=== PATIENT | male | born 1970 | race African-American/Black ===

== ENCOUNTER 2017-09-17 11:14 | Emergency (ER) | payer MEDICARE, MEDICAID ==
[~2017-09-17] VITALS: Ht 177.8 cm; Wt 128.1 kg
[~2017-09-17 11:14] MED LIST: AMLO10TA4 PO; ASPI-1159 PO; ATEN50TA PO; CHLO25TA27 PO; CYCL5TAB PO
[2017-09-17 11:17] VITALS: BP 160/109
== END 2017-09-17 15:06 | disposition home or self-care (01) ==
LOC: ER 14:53
DX: S00.86XA Insect bite (nonvenomous) of other part of head, initial encounter (principal); W57.XXXA Bitten or stung by nonvenomous insect and other nonvenomous arthropods, initial encounter; Y93.89 Activity, other specified; Y92.89 Other specified places as the place of occurrence of the external cause; R03.0 Elevated blood-pressure reading, without diagnosis of hypertension; R21 Rash and other nonspecific skin eruption; I10 Essential (primary) hypertension; E11.9 Type 2 diabetes mellitus without complications; F17.210 Nicotine dependence, cigarettes, uncomplicated; F12.90 Cannabis use, unspecified, uncomplicated
CPT/HCPCS: 99283

== ENCOUNTER 2020-06-09 11:04 | Emergency (ER) | payer MEDICARE, MEDICAID ==
[~2020-06-09] VITALS: Ht 177.8 cm; Wt 75.0 kg
[~2020-06-09 11:04] MED LIST changes: -ASPI-1159 PO; +ASPI-1497 PO
[2020-06-09 12:45] VITALS: BP 177/113
== END 2020-06-09 12:46 | disposition home or self-care (01) ==
LOC: ER 11:04
DX: I10 Essential (primary) hypertension (principal); F12.10 Cannabis abuse, uncomplicated; E11.9 Type 2 diabetes mellitus without complications; Z88.0 Allergy status to penicillin; Z79.82 Long term (current) use of aspirin; Z98.890 Other specified postprocedural states
CPT/HCPCS: 99281

== ENCOUNTER 2020-06-23 10:21 | Emergency (ER) | payer MEDICARE, MEDICAID ==
[~2020-06-23] VITALS: Ht 177.8 cm; Wt 127.0 kg
[2020-06-23 10:26] VITALS: BP 144/93
== END 2020-06-23 11:14 | disposition home or self-care (01) ==
LOC: ER 10:21
DX: I10 Essential (primary) hypertension (principal); E11.9 Type 2 diabetes mellitus without complications; F12.10 Cannabis abuse, uncomplicated; Z79.82 Long term (current) use of aspirin; Z88.0 Allergy status to penicillin
CPT/HCPCS: 99281

== ENCOUNTER 2021-10-27 17:55 | Inpatient (IN) | payer MEDICAID, OTHER ==
[~2021-10-27] VITALS: Ht 175.3 cm; Wt 131.5 kg
[2021-10-27] MEDS ORDERED: CARV6.2548 PO (22:38)
[2021-10-27] MEDS ORDERED: METF-414 PO (22:39)
[2021-10-27] MEDS ORDERED: LISI40TA13 PO (22:39)
[2021-10-27] MEDS ORDERED: METO-411 PO (22:40)
[2021-10-27] MEDS ORDERED: ATOR20TA65 PO (22:41)
[2021-10-27] MEDS ORDERED: HYDR25TA PO (22:41)
[2021-10-27] MEDS ORDERED: FURO40TA5 PO (22:41)
[2021-10-27 23:04] LABS: BASOPHILS % 0.5 % (0.0-2.0); EOSINOPHILS % 5.7 % (0.0-5.0); HEMATOCRIT. 38.7 % (42.0-52.0); LYMPHOCYTES % 25.8 % (20.0-50.0); MEAN CORPUSCULAR HEMOGLOBIN 30.8 pg (28.0-32.0); MEAN CORPUSCULAR VOLUME 91.5 fL (80.0-94.0); MEAN PLATELET VOLUME 7.9 fl (7.4-10.4); MONOCYTES % 10.9 % (2.0-8.0); NEUTROPHILS % 57.1 % (40.0-76.0); PLATELET 251 x1000/uL (130-400); RED BLOOD CELL COUNT 4.24 mill/uL (4.7-6.1); RED CELL DISTRIBUTION WIDTH 13.4 % (11.6-14.6)
[2021-10-27 23:13] LABS: CHLORIDE 103 mEq/L (98-107)
[2021-10-27 23:14] LABS: PROTHROMBIN TIME 10.8 sec (9.6-11.0)
[2021-10-28] MEDS ORDERED: SODIUM CHLORIDE 0.9% 1,000 ML IV ONE (01:45)
[2021-10-28] MEDS ORDERED: POTASSIUM CHLORIDE 20MEQ TABLET SR PO NR ×2 (06:00)
[2021-10-28] MEDS ORDERED: CHOL400D7 PO (12:54)
[2021-10-28 12:58] VITALS: BP 110/68
[2021-10-28 13:00] VITALS: BP 110/68
[2021-10-28] MEDS ORDERED: ONDANSETRON HCL 4MG/2ML INJ IV PRN (13:30)
[2021-10-28] MEDS ORDERED: DEXTROSE 50% WATER 50ML SYRINGE IV PRN (13:30)
[2021-10-28] MEDS ORDERED: POTASSIUM CHLORIDE 20MEQ/PACKET PO NR (14:00)
[2021-10-28 16:42] LABS: CREATINE KINASE 123 IU/L (39-308); CREATINE KINASE MB FRACTION < 1.0 ng/mL (0.5-3.6)
[2021-10-28 16:44] LABS: BG BASE EXCESS 3.8 mmol/L (-2.0-2.0); BG CARBOXYHEMOGLOBIN 0.5 % (0.5-1.5); BG DEOXYHEMOGLOBIN 5.7 % (0.0-5.0); BG HCO3 ACT 28.2 mmol/L (22.0-26.0); BG METHEMOGLOBIN 0.3 % (0.0-1.5); BG OXYGEN SATURATION 94.3 % (92.0-98.5); BG OXYHEMOGLOBIN 93.5 % (94.0-97.0); BG PCO2 41.8 mmHg (35.0-45.0); BG PH 7.447 (7.350-7.450); BG PO2 72.3 mmHg (75.0-100.0); BG TOTAL HEMOGLOBIN 13.1 g/dL (12.0-18.0)
[2021-10-28] MEDS: BLOOD SUGAR DIAGNOSTIC STRIP TEST SCH ×2 (17:10→20:59)
[2021-10-28 17:30] VITALS: BP 109/65
[2021-10-28] MEDS: INSULIN LISPRO 100 UNITS/ML SUBCUT SCH ×2 (17:40→20:59)
[2021-10-28] MEDS: SODIUM CHL 0.9% + KCL 20MEQ/L 1,000 ML IV SCH (18:25)
[2021-10-28] MEDS: ENOXAPARIN 30MG/0.3ML SYR SUBCUT SCH ×2 (18:26→20:56)
[2021-10-28 20:00] VITALS: BP 111/64
[2021-10-28] MEDS: ATORVASTATIN CALCIUM 20MG TABLET PO SCH (20:54)
[2021-10-28] MEDS ORDERED: CARVEDILOL 6.25 MG TABLET PO SCH (21:00)
[2021-10-28 22:19] LABS: CLARITY URINE CLEAR (CLEAR); COLOR URINE YELLOW (YELLOW); KETONES URINE NEGATIVE (NEGATIVE); LEUKOCYTE ESTERASE URINE NEGATIVE (NEGATIVE); NITRITE URINE NEGATIVE (NEGATIVE); OCCULT BLOOD URINE NEGATIVE (NEGATIVE); PROTEIN URINE NEGATIVE (NEGATIVE); SPECIFIC GRAVITY URINE 1.012 (1.005-1.030); UROBILINOGEN URINE 0.2 E.U./dL (0.2-1.0)
[2021-10-29] VITALS: BP 106/74
[2021-10-29] MEDS: SODIUM CHL 0.9% + KCL 20MEQ/L 1,000 ML IV SCH ×4 (00:13→22:17)
[2021-10-29 02:31] LABS: CREATINE KINASE 109 IU/L (39-308); CREATINE KINASE MB FRACTION < 1.0 ng/mL (0.5-3.6)
[2021-10-29 04:00] VITALS: BP 101/63
[2021-10-29] MEDS: INSULIN LISPRO 100 UNITS/ML SUBCUT SCH ×4 (06:40→21:00)
[2021-10-29] MEDS: BLOOD SUGAR DIAGNOSTIC STRIP TEST SCH ×4 (06:40→20:58)
[2021-10-29 07:59] LABS: CHLORIDE 109 mEq/L (98-107)
[2021-10-29] MEDS: ENOXAPARIN 30MG/0.3ML SYR SUBCUT SCH ×2 (07:59→20:57)
[2021-10-29 08:00] VITALS: BP 100/60
[2021-10-29 08:06] LABS: BASOPHILS % 0.7 % (0.0-2.0); EOSINOPHILS % 7.2 % (0.0-5.0); HEMOGLOBIN. 10.9 g/dL (14.0-18.0); LYMPHOCYTES % 28.2 % (20.0-50.0); MEAN CORPUSCULAR HEMOGLOBIN 31.9 pg (28.0-32.0); MEAN CORPUSCULAR VOLUME 90.9 fL (80.0-94.0); MEAN PLATELET VOLUME 8.6 fl (7.4-10.4); MONOCYTES % 11.5 % (2.0-8.0); NEUTROPHILS % 52.4 % (40.0-76.0); PLATELET 204 x1000/uL (130-400); RED BLOOD CELL COUNT 3.41 mill/uL (4.7-6.1); RED CELL DISTRIBUTION WIDTH 13.3 % (11.6-14.6)
[2021-10-29 12:00] VITALS: BP 106/62
[2021-10-29] MEDS ORDERED: REGADENOSON 0.4 MG/5 ML IV NR (12:45)
[2021-10-29 16:00] VITALS: BP 108/70
[2021-10-29 17:02] LABS: *AMPHETAMINES SCREEN URINE NEGATIVE (NEGATIVE); *BARBITURATES SCREEN URINE NEGATIVE (NEGATIVE); *BENZODIAZEPINES SCREEN URINE NEGATIVE (NEGATIVE); *COCAINE SCREEN URINE NEGATIVE (NEGATIVE); CANNABINOID URINE SCREEN NEGATIVE (NEGATIVE); METHADONE URINE SCREEN NEGATIVE (NEGATIVE); OPIATES URINE SCREEN NEGATIVE (NEGATIVE); PHENCYCLIDINE URINE SCREEN NEGATIVE (NEGATIVE)
[2021-10-29 20:00] VITALS: BP 112/65
[2021-10-29] MEDS: ATORVASTATIN CALCIUM 20MG TABLET PO SCH (20:53)
[2021-10-30] VITALS: BP 116/50
[2021-10-30 04:00] VITALS: BP 113/82
[2021-10-30] MEDS: SODIUM CHL 0.9% + KCL 20MEQ/L 1,000 ML IV SCH ×3 (05:32→23:15)
[2021-10-30] MEDS: BLOOD SUGAR DIAGNOSTIC STRIP TEST SCH ×4 (06:59→20:36)
[2021-10-30] MEDS: INSULIN LISPRO 100 UNITS/ML SUBCUT SCH ×4 (07:00→21:00)
[2021-10-30 07:01] LABS: BASOPHILS % 0.6 % (0.0-2.0); EOSINOPHILS % 7.7 % (0.0-5.0); HEMATOCRIT. 30.3 % (42.0-52.0); HEMOGLOBIN. 10.5 g/dL (14.0-18.0); LYMPHOCYTES % 28.4 % (20.0-50.0); MEAN CORPUSCULAR HEMOGLOBIN 31.7 pg (28.0-32.0); MEAN CORPUSCULAR VOLUME 91.5 fL (80.0-94.0); MEAN PLATELET VOLUME 8.7 fl (7.4-10.4); MONOCYTES % 12.5 % (2.0-8.0); NEUTROPHILS % 50.8 % (40.0-76.0); PLATELET 203 x1000/uL (130-400); RED BLOOD CELL COUNT 3.31 mill/uL (4.7-6.1); RED CELL DISTRIBUTION WIDTH 13.2 % (11.6-14.6)
[2021-10-30 07:31] LABS: CHLORIDE 115 mEq/L (98-107)
[2021-10-30] MEDS: ENOXAPARIN 30MG/0.3ML SYR SUBCUT SCH ×2 (10:11→21:07)
[2021-10-30 10:15] VITALS: BP 125/81
[2021-10-30] MEDS ORDERED: REGADENOSON 0.4 MG/5 ML IV ONE (11:12)
[2021-10-30] MEDS: ACETAMINOPHEN 325MG TABLET PO PRN (15:51)
[2021-10-30 20:00] VITALS: BP 109/79
[2021-10-30] MEDS: ATORVASTATIN CALCIUM 20MG TABLET PO SCH (21:07)
[2021-10-31] VITALS: BP 102/60
[2021-10-31 04:00] VITALS: BP 106/68
[2021-10-31] MEDS: BLOOD SUGAR DIAGNOSTIC STRIP TEST SCH ×4 (05:19→20:32)
[2021-10-31] MEDS: INSULIN LISPRO 100 UNITS/ML SUBCUT SCH ×4 (05:42→20:31)
[2021-10-31 07:45] LABS: BASOPHILS % 0.5 % (0.0-2.0); EOSINOPHILS % 8.6 % (0.0-5.0); HEMATOCRIT. 31.5 % (42.0-52.0); HEMOGLOBIN. 10.9 g/dL (14.0-18.0); LYMPHOCYTES % 29.8 % (20.0-50.0); MEAN CORPUSCULAR HEMOGLOBIN 31.7 pg (28.0-32.0); MEAN CORPUSCULAR VOLUME 91.9 fL (80.0-94.0); MEAN PLATELET VOLUME 8.8 fl (7.4-10.4); MONOCYTES % 11.6 % (2.0-8.0); NEUTROPHILS % 49.5 % (40.0-76.0); PLATELET 208 x1000/uL (130-400); RED BLOOD CELL COUNT 3.43 mill/uL (4.7-6.1); RED CELL DISTRIBUTION WIDTH 13.5 % (11.6-14.6)
[2021-10-31 08:00] VITALS: BP 109/74
[2021-10-31 08:06] LABS: CHLORIDE 114 mEq/L (98-107)
[2021-10-31] MEDS: SODIUM CHL 0.9% + KCL 20MEQ/L 1,000 ML IV SCH ×2 (08:58→22:03)
[2021-10-31] MEDS: ENOXAPARIN 30MG/0.3ML SYR SUBCUT SCH ×2 (09:00→20:42)
[2021-10-31] MEDS ORDERED: POLYMYXIN B SULFATE 500000 UNITS/VIAL ONE (09:28)
[2021-10-31] MEDS ORDERED: SKIN ADHESIVE 0.7 GM EA TOP ONE (09:28)
[2021-10-31] MEDS ORDERED: LIDOCAINE HCL/EPINEPHRINE 1%-EPI 1:100,000 20 ML VIAL ONE (09:29)
[2021-10-31] MEDS ORDERED: PROPOFOL 200MG/20ML VIAL IV ONE ×2 (09:57→10:53)
[2021-10-31] MEDS ORDERED: FENTANYL CITRATE/PF 50MCG/ML 2ML VIAL ONE ×2 (09:57→10:08)
[2021-10-31] MEDS ORDERED: MIDAZOLAM HCL 2 MG/2 ML VIAL ONE ×2 (09:58→10:08)
[2021-10-31] MEDS ORDERED: VANCOMYCIN 1G PREMIX 200 ML IV NR (10:30)
[2021-10-31] MEDS ORDERED: HYDROMORPHONE HCL/PF 2MG/ML CPJ IV PRN (10:45)
[2021-10-31] MEDS ORDERED: LABETALOL 5MG/ML SYR 20 MG/4 ML SYRINGE IV PRN (10:45)
[2021-10-31] MEDS ORDERED: ONDANSETRON HCL 4MG/2ML INJ IV PRN (10:45)
[2021-10-31] MEDS ORDERED: MEPERIDINE HCL/PF 25MG/ML CPJ IV PRN (10:45)
[2021-10-31] MEDS ORDERED: HYDROCODONE/ACETAMINOPHEN 5/325MG TABLET PO PRN (11:15)
[2021-10-31] MEDS ORDERED: MORPHINE SULFATE 2 MG/ML CPJ (NOT FOR IM USE) IV PRN (11:15)
[2021-10-31 12:00] VITALS: BP 132/89
[2021-10-31] MEDS: VANCOMYCIN 1G PREMIX 200 ML IV SCH (15:18)
[2021-10-31 16:00] VITALS: BP 125/84
[2021-10-31 20:00] VITALS: BP 143/89
[2021-10-31] MEDS: ACETAMINOPHEN 325MG TABLET PO PRN (20:39)
[2021-10-31] MEDS: ATORVASTATIN CALCIUM 20MG TABLET PO SCH (20:39)
[2021-11-01] VITALS: BP 120/78
[2021-11-01] MEDS: VANCOMYCIN 1G PREMIX 200 ML IV SCH ×2 (01:09→09:08)
[2021-11-01 04:00] VITALS: BP 149/104
[2021-11-01] MEDS: BLOOD SUGAR DIAGNOSTIC STRIP TEST SCH ×2 (06:45→12:15)
[2021-11-01] MEDS: INSULIN LISPRO 100 UNITS/ML SUBCUT SCH ×2 (06:45→12:16)
[2021-11-01 07:33] LABS: BASOPHILS % 0.5 % (0.0-2.0); HEMATOCRIT. 31.2 % (42.0-52.0); HEMOGLOBIN. 10.9 g/dL (14.0-18.0); LYMPHOCYTES % 23.5 % (20.0-50.0); MEAN CORPUSCULAR HEMOGLOBIN 32.3 pg (28.0-32.0); MEAN CORPUSCULAR VOLUME 92.5 fL (80.0-94.0); MEAN PLATELET VOLUME 8.6 fl (7.4-10.4); PLATELET 205 x1000/uL (130-400); RED BLOOD CELL COUNT 3.37 mill/uL (4.7-6.1); RED CELL DISTRIBUTION WIDTH 13.4 % (11.6-14.6)
[2021-11-01 07:41] LABS: CHLORIDE 115 mEq/L (98-107)
[2021-11-01 08:00] VITALS: BP 120/81
[2021-11-01] MEDS: ACETAMINOPHEN 325MG TABLET PO PRN (09:08)
[2021-11-01] MEDS: ENOXAPARIN 30MG/0.3ML SYR SUBCUT SCH (09:08)
[2021-11-01 12:00] VITALS: BP 137/95
[2021-11-01] MEDS: SODIUM CHL 0.9% + KCL 20MEQ/L 1,000 ML IV SCH (12:15)
[2021-11-01 14:26] VITALS: BP 137/95
[2021-11-01] MEDS ORDERED: NALOXONE HCL 0.4MG/ML VIAL IV PRN (16:15)
== END 2021-11-01 15:50 | disposition home or self-care (01) | DRG 242 ==
LOC: ER 17:55 → 8WST 10-28 02:52 → ENRESERV 10-28 08:59
PROVIDERS: ADMIT Internal Medicine; ATTEND Internal Medicine
PROC: 0JH606Z Insertion of Pacemaker, Dual Chamber into Chest Subcutaneous Tissue and Fascia, Open Approach (ICD-10-PCS; principal; 2021-10-31)
PROC: 02H63JZ Insertion of Pacemaker Lead into Right Atrium, Percutaneous Approach (ICD-10-PCS; 2021-10-31)
PROC: 02HK3JZ Insertion of Pacemaker Lead into Right Ventricle, Percutaneous Approach (ICD-10-PCS; 2021-10-31)
PROC: 4A02XM4 Measurement of Cardiac Total Activity, External Approach (ICD-10-PCS; 2021-10-31)
PROC: 3E033HZ Introduction of Radioactive Substance into Peripheral Vein, Percutaneous Approach (ICD-10-PCS; 2021-10-31)
DX: I44.2 Atrioventricular block, complete (principal); I26.99 Other pulmonary embolism without acute cor pulmonale; I50.43 Acute on chronic combined systolic (congestive) and diastolic (congestive) heart failure; N17.9 Acute kidney failure, unspecified; Z68.41 Body mass index [BMI] 40.0-44.9, adult; I11.0 Hypertensive heart disease with heart failure; G90.8 Other disorders of autonomic nervous system; E66.01 Morbid (severe) obesity due to excess calories; E87.6 Hypokalemia; E78.5 Hyperlipidemia, unspecified; E11.9 Type 2 diabetes mellitus without complications; Z20.822 Contact with and (suspected) exposure to COVID-19; M10.9 Gout, unspecified; I95.9 Hypotension, unspecified; K52.9 Noninfective gastroenteritis and colitis, unspecified; G47.33 Obstructive sleep apnea (adult) (pediatric); N28.9 Disorder of kidney and ureter, unspecified; I49.9 Cardiac arrhythmia, unspecified; F12.90 Cannabis use, unspecified, uncomplicated; F17.210 Nicotine dependence, cigarettes, uncomplicated; Z88.0 Allergy status to penicillin; Z79.84 Long term (current) use of oral hypoglycemic drugs; Z79.899 Other long term (current) drug therapy
CPT/HCPCS: 36415; 36600; 71045; 76000; 78452; 78582; 80048; 80053; 80061; 80305; 81003; 82375; 82550; 82553; 82805; 82962; 83036; 83735; 83880; 84484; 85025; 85379; 87426; 93005; 93017; 93306; 93880; 93970; 99285; A4565; A9500; A9558; C1786; C1893; J1650; J2250; J2704; J2785; J3010; J3370; J3480; J3490

== ENCOUNTER 2021-12-07 07:41 | Emergency (ER) | payer OTHER, MEDICAID ==
[~2021-12-07] VITALS: Ht 175.3 cm; Wt 127.0 kg
[~2021-12-07 07:41] MED LIST changes: -AMLO10TA4 PO; -ASPI-1497 PO; -ATEN50TA PO; +ATOR20TA65 PO; -CHLO25TA27 PO; -CYCL5TAB PO; +HYDR25TA PO; +LISI40TA13 PO; +METF-414 PO
[2021-12-07 07:49] VITALS: BP 126/82
[2021-12-07] MEDS ORDERED: CLIN-194 PO (08:40)
== END 2021-12-07 09:07 | disposition home or self-care (01) ==
LOC: ER 07:41
DX: S30.861A Insect bite (nonvenomous) of abdominal wall, initial encounter (principal); L03.311 Cellulitis of abdominal wall; W57.XXXA Bitten or stung by nonvenomous insect and other nonvenomous arthropods, initial encounter; I11.0 Hypertensive heart disease with heart failure; I50.9 Heart failure, unspecified; E11.9 Type 2 diabetes mellitus without complications; Y93.89 Activity, other specified; Y92.89 Other specified places as the place of occurrence of the external cause; Z79.899 Other long term (current) drug therapy
CPT/HCPCS: 99281; 99283

== ENCOUNTER 2022-03-10 06:28 | Emergency (ER) | payer OTHER, MEDICAID ==
[~2022-03-10] VITALS: Ht 175.3 cm; Wt 131.9 kg
[~2022-03-10 06:28] MED LIST changes: +CLIN-194 PO
[2022-03-10 06:41] VITALS: BP 126/89
[2022-03-10] MEDS ORDERED: CLIN-194 MT (08:31)
[2022-03-10] MEDS ORDERED: ACET-2708 MT (08:31)
== END 2022-03-10 08:39 | disposition home or self-care (01) ==
LOC: ER 06:28
DX: L02.31 Cutaneous abscess of buttock (principal); R00.0 Tachycardia, unspecified; E11.9 Type 2 diabetes mellitus without complications; I10 Essential (primary) hypertension; M10.9 Gout, unspecified; F12.10 Cannabis abuse, uncomplicated; Z79.84 Long term (current) use of oral hypoglycemic drugs; Z88.0 Allergy status to penicillin
CPT/HCPCS: 99284

== ENCOUNTER 2022-03-12 07:15 | Emergency (ER) | payer OTHER, MEDICAID ==
[~2022-03-12] VITALS: Ht 175.3 cm; Wt 132.0 kg
[~2022-03-12 07:15] MED LIST changes: +ACET-2708 MT; +CLIN-194 MT
[2022-03-12 07:35] VITALS: BP 105/73
[2022-03-12] MEDS ORDERED: LIDOCAINE HCL/EPINEPHRINE 1%-EPI 1:100,000 20 ML VIAL INFIL ONE (08:45)
== END 2022-03-12 09:10 | disposition home or self-care (01) ==
LOC: ER 07:15
DX: L02.31 Cutaneous abscess of buttock (principal); F12.10 Cannabis abuse, uncomplicated; I10 Essential (primary) hypertension; E78.00 Pure hypercholesterolemia, unspecified; Z48.00 Encounter for change or removal of nonsurgical wound dressing; Z88.0 Allergy status to penicillin
CPT/HCPCS: 99281; J3490

== ENCOUNTER 2022-07-02 06:38 | Emergency (ER) | payer OTHER, MEDICAID ==
[~2022-07-02] VITALS: Ht 175.3 cm; Wt 136.2 kg
[2022-07-02 06:51] VITALS: BP 111/74
[2022-07-02 07:13] LABS: BASOPHILS % 0.8 % (0.0-2.0); HEMATOCRIT. 38.4 % (42.0-52.0); HEMOGLOBIN. 13.1 g/dL (14.0-18.0); LYMPHOCYTES % 29.5 % (20.0-50.0); MEAN CORPUSCULAR HEMOGLOBIN 30.9 pg (28.0-32.0); MEAN CORPUSCULAR VOLUME 90.3 fL (80.0-94.0); MEAN PLATELET VOLUME 8.1 fl (7.4-10.4); MONOCYTES % 10.7 % (2.0-8.0); PLATELET 272 x1000/uL (130-400); RED BLOOD CELL COUNT 4.25 mill/uL (4.7-6.1); RED CELL DISTRIBUTION WIDTH 14.5 % (11.6-14.6)
[2022-07-02 07:16] LABS: CHLORIDE 107 mEq/L (98-107)
[2022-07-02 08:24] LABS: CLARITY URINE CLEAR (CLEAR); COLOR URINE YELLOW (YELLOW); KETONES URINE NEGATIVE (NEGATIVE); LEUKOCYTE ESTERASE URINE NEGATIVE (NEGATIVE); NITRITE URINE NEGATIVE (NEGATIVE); OCCULT BLOOD URINE NEGATIVE (NEGATIVE); PH URINE 5.5 (4.5-8.0); PROTEIN URINE NEGATIVE (NEGATIVE); SPECIFIC GRAVITY URINE 1.015 (1.005-1.030); UROBILINOGEN URINE 0.2 E.U./dL (0.2-1.0)
[2022-07-02 08:50] LABS: CREATINE KINASE 150 IU/L (39-308)
== END 2022-07-02 11:18 | disposition home or self-care (01) ==
LOC: ER 06:38
DX: K80.20 Calculus of gallbladder without cholecystitis without obstruction (principal); R21 Rash and other nonspecific skin eruption
CPT/HCPCS: 36415; 71045; 74176; 80053; 81003; 82550; 83880; 84484; 85025; 93005; 99285

== ENCOUNTER 2023-01-27 14:33 | Emergency (ER) | payer OTHER ==
[~2023-01-27] VITALS: Ht 182.9 cm; Wt 138.0 kg
[2023-01-27 14:50] VITALS: O2SAT 96
[2023-01-27] MEDS ORDERED: HYDROCODONE/ACETAMINOPHEN 7.5/325MG TABLET PO ONE (16:30)
[2023-01-27] MEDS ORDERED: AZITHROMYCIN 500 MG TABLET PO ONE (16:30)
[2023-01-27 16:57] LABS: MEAN CORPUSCULAR HEMOGLOBIN 30.4 pg (28.0-32.0); MEAN CORPUSCULAR HGB CONC 33.3 g/dL (31.0-37.0); MEAN CORPUSCULAR VOLUME 91.4 fL (80.0-94.0); PLATELET 275 x1000/uL (130-400); RED BLOOD CELL COUNT 4.59 mill/uL (4.7-6.1); RED CELL DISTRIBUTION WIDTH 14.5 % (11.6-14.6); WHITE BLOOD COUNT 7.7 x1000/uL (4.5-11.0)
[2023-01-27 16:59] LABS: DIFFERENTIAL COMMENT 1
[2023-01-27 17:07] LABS: CHLORIDE 103 mEq/L (98-107); INDEX HEMOLYSI 1 (1-3); INDEX ICTERIC 1 (1-4); INDEX LIPEMIC 1 (1-3); POTASSIUM 2.9 mEq/L (3.5-5.1); SODIUM 140 mEq/L (136-145)
[2023-01-27 17:16] LABS: ALANINE AMINOTRANSFERASE 25 IU/L (13-61); ALBUMIN 3.8 g/dL (3.4-5.0); ASPARTATE AMINOTRANSFERASE 28 IU/L (15-37); BILIRUBIN TOTAL 0.5 mg/dL (0.1-1.0); CALCIUM 8.7 mg/dL (8.5-10.1); CARBON DIOXIDE 31 mEq/L (21-32); CREATININE 1.4 mg/dL (0.6-1.3); GLUCOSE 104 mg/dL (70-105); NT PRO B-TYPE NATRIURETIC PEP 45 pg/mL (5-125); PROTEIN TOTAL 7.7 g/dL (6.0-8.3); TROPONIN I HIGH SENSITIVITY 22 ng/L (<78); UREA NITROGEN BLOOD 14 mg/dL (7-21)
[2023-01-27 17:20] LABS: PLATELET ESTIMATE NORMAL
[2023-01-27] MEDS ORDERED: IBUPROFEN 800MG TABLET PO ONE (18:15)
[2023-01-27] MEDS ORDERED: IBUPROFEN 400MG TABLET PO NR (18:30)
[2023-01-27] MEDS ORDERED: IBUP-1525 MT (18:47)
[2023-01-27] MEDS ORDERED: AZIT250T12 MT (18:47)
[2023-01-27 19:21] VITALS: BP 107/50; PULSE 68; RESP 13; TEMP 98.1
== END 2023-01-27 19:35 | disposition home or self-care (01) ==
LOC: ER 14:33
DX: R53.1 Weakness (principal); R53.81 Other malaise; R50.9 Fever, unspecified; E78.00 Pure hypercholesterolemia, unspecified; I10 Essential (primary) hypertension; F12.10 Cannabis abuse, uncomplicated; Z95.0 Presence of cardiac pacemaker; Z79.899 Other long term (current) drug therapy
CPT/HCPCS: 36415; 71045; 80053; 83880; 84484; 85025; 93005; 99285

== ENCOUNTER 2023-06-06 07:59 | Emergency (ER) | payer OTHER ==
[~2023-06-06] VITALS: Ht 182.9 cm; Wt 127.0 kg
[~2023-06-06 07:59] MED LIST changes: +AZIT250T12 MT; +IBUP-1525 MT
[2023-06-06 08:02] VITALS: O2SAT 97
[2023-06-06 08:25] LABS: BASOPHILS % 0.6 % (0.0-2.0); EOSINOPHILS % 4.2 % (0.0-5.0); HEMATOCRIT. 40.2 % (42.0-52.0); HEMOGLOBIN. 13.7 g/dL (14.0-18.0); LYMPHOCYTES % 24.3 % (20.0-50.0); MEAN CORPUSCULAR HEMOGLOBIN 30.8 pg (28.0-32.0); MEAN CORPUSCULAR HGB CONC 34.1 g/dL (31.0-37.0); MEAN CORPUSCULAR VOLUME 90.4 fL (80.0-94.0); MEAN PLATELET VOLUME 7.5 fl (7.4-10.4); MONOCYTES % 9.6 % (2.0-8.0); NEUTROPHILS % 61.3 % (40.0-76.0); PLATELET 322 x1000/uL (130-400); RED BLOOD CELL COUNT 4.45 mill/uL (4.7-6.1); RED CELL DISTRIBUTION WIDTH 14.6 % (11.6-14.6); WHITE BLOOD COUNT 8.2 x1000/uL (4.5-11.0)
[2023-06-06 08:48] LABS: ALANINE AMINOTRANSFERASE 394 IU/L (10-49); ALBUMIN 4.5 g/dL (3.2-4.8); ASPARTATE AMINOTRANSFERASE 412 IU/L (<34); BILIRUBIN TOTAL 2.8 mg/dL (0.1-1.0); CALCIUM 9.1 mg/dL (8.7-10.4); CARBON DIOXIDE 28 mEq/L (21-32); CHLORIDE 106 mEq/L (98-107); CREATININE 0.9 mg/dL (0.6-1.3); GLUCOSE 108 mg/dL (70-105); POTASSIUM 3.4 mEq/L (3.5-5.1); SODIUM 139 mEq/L (136-145); UREA NITROGEN BLOOD 9 mg/dL (9-23)
[2023-06-06 08:51] LABS: CLARITY URINE CLEAR (CLEAR); COLOR URINE DARK YELLOW (YELLOW); GLUCOSE URINE NEGATIVE (NEGATIVE); KETONES URINE NEGATIVE (NEGATIVE); LEUKOCYTE ESTERASE URINE NEGATIVE (NEGATIVE); NITRITE URINE NEGATIVE (NEGATIVE); OCCULT BLOOD URINE NEGATIVE (NEGATIVE); PROTEIN URINE TRACE (NEGATIVE); SPECIFIC GRAVITY URINE 1.013 (1.005-1.030)
[2023-06-06 09:52] LABS: BACTERIA URINE NONE SEEN; RBC URINE NONE SEEN /hpf (0-2); SQUAMOUS EPITHELIAL CELL URINE NONE SEEN /lpf (RARE/1+); WBC URINE 0-2 /hpf (0-2); YEAST URINE NONE SEEN
[2023-06-06] MEDS ORDERED: ONDANSETRON HCL 4MG/2ML INJ IV STA (10:26)
[2023-06-06] MEDS ORDERED: KETOROLAC 30MG/ML VIAL IV STA (10:26)
[2023-06-06] MEDS: SODIUM CHLORIDE 0.9% 1,000 ML IV ONE ×2 (13:00→16:38)
[2023-06-06] MEDS: KETOROLAC 30MG/ML VIAL IV NR (13:09)
[2023-06-06] MEDS: ONDANSETRON HCL 4MG/2ML INJ IV NR (13:09)
[2023-06-06] MEDS ORDERED: METRONIDAZOLE 500 MG PREMIX 100 ML IV ONE (16:15)
[2023-06-06 16:25] VITALS: BP 107/70; PULSE 60; RESP 16; TEMP 98.3
[2023-06-06] MEDS: CEFTRIAXONE 1GM/50ML 50 ML IV ONE (16:38)
== END 2023-06-06 18:59 | disposition short-term general hospital (02) ==
LOC: ER 07:59 → EDBEDREQ 10:30 → EDBEDREQTM 14:06 → CANBEDREQ 16:08 → ER 18:59
DX: K80.20 Calculus of gallbladder without cholecystitis without obstruction (principal); K80.50 Calculus of bile duct without cholangitis or cholecystitis without obstruction; E78.00 Pure hypercholesterolemia, unspecified; I10 Essential (primary) hypertension; F12.10 Cannabis abuse, uncomplicated; Z79.899 Other long term (current) drug therapy
CPT/HCPCS: 80053; 81003; 80320; 83690; 85025; 36415; 74176; 76700; 96361; 96365; 96375; 99285; J0696; J1885; J2405; J7030; G0480

== ENCOUNTER 2024-08-20 11:24 | Emergency (ER) | payer OTHER, MEDICAID ==
[~2024-08-20] VITALS: Ht 177.8 cm; Wt 131.0 kg
[2024-08-20 11:50] VITALS: O2SAT 98
[2024-08-20 14:30] LABS: BASOPHILS % 1.2 % (0.0-2.0); EOSINOPHILS % 3.4 % (0.0-5.0); HEMATOCRIT. 28.9 % (42.0-52.0); HEMOGLOBIN. 9.9 g/dL (14.0-18.0); LYMPHOCYTES % 17.9 % (20.0-50.0); MEAN CORPUSCULAR HEMOGLOBIN 31.5 pg (28.0-32.0); MEAN CORPUSCULAR HGB CONC 34.1 g/dL (31.0-37.0); MEAN CORPUSCULAR VOLUME 92.2 fL (80.0-94.0); MONOCYTES % 9.3 % (2.0-8.0); NEUTROPHILS % 68.2 % (40.0-76.0); PLATELET 624 x1000/uL (130-400); RED BLOOD CELL COUNT 3.13 mill/uL (4.7-6.1); RED CELL DISTRIBUTION WIDTH 15.7 % (11.6-14.6); WHITE BLOOD COUNT 12.7 x1000/uL (4.5-11.0)
[2024-08-20 14:39] LABS: CARBON DIOXIDE 25 mEq/L (21-32); CHLORIDE 112 mEq/L (98-107); POTASSIUM 3.8 mEq/L (3.5-5.1); SODIUM 144 mEq/L (136-145)
[2024-08-20 14:40] LABS: CALCIUM 8.9 mg/dL (8.7-10.4)
[2024-08-20 14:45] LABS: CREATININE 1.1 mg/dL (0.6-1.3); GLUCOSE 99 mg/dL (70-105); UREA NITROGEN BLOOD 9 mg/dL (9-23)
[2024-08-20 15:35] VITALS: BP 131/83; PULSE 75; RESP 18; TEMP 36.7; O2SAT 99
== END 2024-08-20 15:37 | disposition home or self-care (01) ==
LOC: ER 11:24
DX: L76.22 Postprocedural hemorrhage of skin and subcutaneous tissue following other procedure (principal); E78.00 Pure hypercholesterolemia, unspecified; I10 Essential (primary) hypertension; F12.90 Cannabis use, unspecified, uncomplicated; Z79.1 Long term (current) use of non-steroidal anti-inflammatories (NSAID); Z95.1 Presence of aortocoronary bypass graft; Z95.0 Presence of cardiac pacemaker; Z98.890 Other specified postprocedural states; Z79.899 Other long term (current) drug therapy; Z88.0 Allergy status to penicillin; Z88.5 Allergy status to narcotic agent
CPT/HCPCS: 99283; 80048; 85025; 36415; A6449